=== PATIENT | female | born 1955 | race Caucasian/White ===

== ENCOUNTER 2022-04-30 07:40 | Day surgery (SDC) | payer MEDICARE ==
[~2022-04-30] VITALS: Ht 172.7 cm; Wt 85.0 kg
[~2022-04-30 07:40] MED LIST: AMLO5 PO; ATOR20 PO; Celexa20 MG PO; HYDCHL25 PO; LEVSOD75 PO
== END 2022-04-30 10:02 | disposition home or self-care (01) ==
LOC: ORSCSDS 07:40
PROVIDERS: Student in an Organized Health Care Education/Training Program
PROC: 0DBN8ZX Excision of Sigmoid Colon, Via Natural or Artificial Opening Endoscopic, Diagnostic (ICD-10-PCS; principal; 2022-04-30 09:00)
DX: R19.5 Other fecal abnormalities (principal); Z86.010 Personal history of colon polyps; K63.5 Polyp of colon; K57.50 Diverticulosis of both small and large intestine without perforation or abscess without bleeding; I10 Essential (primary) hypertension; E78.5 Hyperlipidemia, unspecified; E03.9 Hypothyroidism, unspecified; Z79.899 Other long term (current) drug therapy
CPT/HCPCS: 88305; J2704; J7120

== ENCOUNTER → 2023-05-16 | Outpatient (CLI) | payer MEDICARE ==
[2023-05-21 15:12] LABS: HPV 16 Negative (Negative); HPV 18 Negative (Negative); HPV OTHER HR TYPES Negative (Negative)
== END ==
LOC: LAB 12:00 → LAB SHORT 12:00
PROVIDERS: Family Medicine
DX: Z01.419 Encounter for gynecological examination (general) (routine) without abnormal findings (principal)
CPT/HCPCS: 87624; G0145